=== PATIENT | female | born 1990 | race Caucasian/White ===

== ENCOUNTER 2021-04-22 20:03 | Emergency (ER) | payer BC ==
[~2021-04-22] VITALS: Ht 154.9 cm; Wt 52.2 kg
[2021-04-22 20:10] VITALS: BP_SYST 111
--- NOTE | 2021-04-22 20:16 | NUR ---
Patient to ER bed 7 to gown for evaluation. Side rails up. Report given to AMARJIT LÓPEZ.
--- NOTE | 2021-04-22 20:17 | NUR ---
ER at bedside examining patient.
--- NOTE | 2021-04-22 20:21 | NUR ---
Patient BIB by family from home. C/O vaginal bleeding x 3 days. Patient reported, had vaginal spotting for 3 days, then today heavy vaginal bleeding. LMP March 10, 2021 ~ 7 weeks , . A/O,X4, lower abdominal pain, cramping, pain rate 7/10.
--- NOTE | 2021-04-22 21:17 | NUR ---
Blood for labwork drawn from cathode washer. Patient tolerated well.
[2021-04-22 21:32] LABS: BILIRUBIN,URINE NEGATIVE (NEGATIVE); BLOOD, URINE 3+ (NEGATIVE); COLOR,URINE YELLOW (YELLOW); GLUCOSE,URINE NEGATIVE (NEGATIVE); KETONES,URINE NEGATIVE (NEGATIVE); LEUKOCYTE ESTERASE ,URINE NEGATIVE (NEGATIVE); NITRITE, URINE NEGATIVE (NEGATIVE); PROTEIN URINE NEGATIVE (NEGATIVE); UROBILINOGEN,URINE 0.2 (0.2-1.0)
[2021-04-22 21:40] LABS: BASOPHILS % (AUTO) 0.6 % (0.0-2.0); EOSINOPHILS # (AUTO) 0.1 K/uL (0.0-0.4); EOSINOPHILS % (AUTO) 0.8 % (0.0-4.0); HEMATOCRIT 36.6 % (36-48); HEMOGLOBIN 12.9 g/dL (12.0-16.0); LYMPHOCYTES # (AUTO) 1.7 K/uL (1.0-5.5); LYMPHOCYTES % (AUTO) 21.7 % (20.5-51.5); MEAN CORPUSCULAR HEMOGLOBIN 32 pg (27-31); MEAN CORPUSCULAR HGB CONC 35 % (32-36); MEAN CORPUSCULAR VOLUME 90 fL (79.0-98.0); MONOCYTES # (AUTO) 0.7 K/uL (0.0-1.0); MONOCYTES % (AUTO) 9.2 % (1.7-9.3); NEUTROPHILS # (AUTO) 5.3 K/uL (1.8-7.7); NEUTROPHILS % (AUTO) 67.7 % (40.0-70.0); PLATELET COUNT (AUTO) 166 K/uL (130-430); RED BLOOD CELL COUNT(AUTO) 4.08 MIL/uL (4.2-6.2); RED CELL DISTRIBUTION WIDTH 12.8 % (9.0-15.0); WHITE BLOOD COUNT (AUTO) 7.8 K/uL (4.8-10.8)
[2021-04-22 21:41] LABS: CLARITY/URINE HAZY (CLEAR)
[2021-04-22 21:43] LABS: BACTERIA,URINE FEW /HPF (None Seen); MUCUS,URINE None Seen /LPF (None Seen); RBC,URINE 20-50 /HPF (0-3); WBC,URINE 0-3 /HPF (0-3)
--- NOTE | 2021-04-22 21:47 | NUR ---
Patient returned back from ultrasound room.
[2021-04-22 21:48] LABS: PROTHROMBIN TIME 10.4 SECS (9.5-12.5)
--- NOTE | 2021-04-22 23:40 | NUR ---
Dr. Arteaga at bedside to explain results and treatment plans.
[2021-04-22] MEDS ORDERED: NITR-85 PO (23:57)
[2021-04-23] VITALS: BP_SYST 111
--- NOTE | 2021-04-23 | NUR ---
Patient given written and verbal discharge instructions and verbalizes understanding. ER MD discussed with patient the results and treatment provided. Patient in stable condition. ID arm band removed. Rx of Macrobid given. Patient educated on pain management and to follow up with PMD. Pain Scale 0/10. Opportunity for questions provided and answered. Medication side effect fact sheet provided.
== END 2021-04-23 | disposition home or self-care (01) ==
LOC: SED 20:03
DX: O20.9 Hemorrhage in early pregnancy, unspecified (principal); R82.71 Bacteriuria; Z79.899 Other long term (current) drug therapy; Z3A.01 Less than 8 weeks gestation of pregnancy
CPT/HCPCS: 36415; 76801; 76802; 81000; 81025; 84702; 85025; 85610-TC; 85730-TC; 86900; 86901; 99284